=== PATIENT | female | born 2000 | race Caucasian/White ===

== ENCOUNTER 2024-11-08 09:11 | Outpatient (CLI) | payer OTHER, SELFPAY ==
--- NOTE | 2024-11-08 08:45 | DI.RAD_ITS ---
Exam(s) XR KNEE LT 3V AP,LAT,JOSÉ LUIS EXAM: XR KNEE LT 3V AP,LAT,JOSÉ LUIS CLINICAL HISTORY: LEFT KNEE PAIN. TECHNIQUE: 2D digital imaging was performed. Three views. COMPARISON: No exams were available for comparison FINDINGS: BONES: No acute fracture is present. No bony destructive lesion is seen. Evidence of prior ACL repair. JOINTS: The knee is normally aligned. No joint effusion is seen. The joint spaces are maintained. No significant periarticular spurring. SOFT TISSUE: Normal. IMPRESSION: Prior ACL repair. No visible joint effusion or significant degenerative changes. DATA REPOSITORY: RADIATION DOSE DELIVERED:
== END 2024-11-08 09:12 | disposition home or self-care (01) ==
LOC: DIORS 09:11
PROVIDERS: PCP Internal Medicine; Visit Provider Student in an Organized Health Care Education/Training Program
DX: M25.562 Pain in left knee (principal)
CPT/HCPCS: 73562

== ENCOUNTER 2024-12-06 01:34 | Outpatient (CLI) | payer OTHER, SELFPAY ==
--- NOTE | 2024-12-06 07:00 | DI.MRI_ITS ---
Exam(s) MR LOWER JOINT LT WO EXAM: MR LOWER JOINT LT WO CLINICAL HISTORY: EVALUATE PREVIOUS ACL REPAIR,internal derangement lt knee,complete tear ant. TECHNIQUE: Multiplanar multisequence MRI was performed. COMPARISON: CR XR KNEE LT 3V AP,LAT,JOSÉ LUIS from 11/08/2024 FINDINGS: BONES: There is no fracture or contusion pattern. JOINTS: Articular cartilage is unremarkable. No effusion is present. TENDONS: Extensor mechanism: Unremarkable. Medial retinaculum: Unremarkable. Lateral retinaculum: Unremarkable. Popliteus: Unremarkable. MUSCLES: Unremarkable. MENISCI: There is a decrease in size of the posterior horn of the medial meniscus. There is increased signal seen in the posterior aspect of the body and the medial aspect of the posterior horn of the medial meniscus. This may represent a tear. Prior meniscectomy changes should also be considered. Please correlate the patient's surgical history. The lateral meniscus is unremarkable. SOFT TISSUES: Unremarkable. LIGAMENTS: Anterior Cruciate: There is a prior anterior cruciate ligament repair. The ligament is intact. Posterior Cruciate: Unremarkable. Medial Collateral:Unremarkable. Lateral Collateral: Unremarkable. OTHER: IMPRESSION: 1. Intact anterior cruciate ligament repair. 2. No evidence of a cruciate ligament or collateral ligament tear. 3. Abnormal signal within and decreased size of the body and posterior horn of the medial meniscus. Differential considerations include postsurgical changes versus acute tear. Please correlate clinically. DATA REPOSITORY:
== END 2024-12-06 01:54 ==
LOC: DI 01:34
PROVIDERS: PCP Internal Medicine; Visit Provider Student in an Organized Health Care Education/Training Program
DX: S83.512A Sprain of anterior cruciate ligament of left knee, initial encounter (principal); X58.XXXA Exposure to other specified factors, initial encounter
CPT/HCPCS: 73721